=== PATIENT | female | born 1950 | race Caucasian/White ===

== ENCOUNTER 2022-07-11 14:56 | Emergency (ER) | payer BC, OTHER ==
[~2022-07-11] VITALS: Ht 162.6 cm; Wt 95.3 kg
[2022-07-11 15:30] VITALS: BP_SYST 171
[2022-07-11] MEDS ORDERED: ATEN-41 PO (16:10)
[2022-07-11] MEDS ORDERED: LOSA100T23 PO (16:10)
[2022-07-11] MEDS ORDERED: HYDROcodone/ACETAMIN 5-325 MG TAB (NORCO/ VICODIN) PO ONE (17:30)
[2022-07-11 17:53] VITALS: BP_SYST 126
== END 2022-07-11 18:07 | disposition home or self-care (01) ==
LOC: SED 14:56
DX: S70.01XA Contusion of right hip, initial encounter (principal); M25.551 Pain in right hip; Z79.899 Other long term (current) drug therapy; X58.XXXA Exposure to other specified factors, initial encounter; Y93.89 Activity, other specified; Y92.89 Other specified places as the place of occurrence of the external cause; Y99.8 Other external cause status
CPT/HCPCS: 73502; 99283